=== PATIENT | female | born 1950 | race American Indian/Alaskan Native ===

== ENCOUNTER 2016-09-24 10:04 | Outpatient (CLI) | payer MEDICARE ==
--- NOTE | 2016-09-24 12:55 | Mammography Report ---
BONE DENSITY STUDY: DEFINITIONS: BMD = Bone Mineral Density T-score = BMD related to mean peak bone mass of young adult (mean expressed in Standard Deviation) Z-score = Age matched BMD expressed in SD World Health Organization (WHO) Diagnostic Criteria Normal T-score > -1 SD Osteopenia T-score between -1 and -2.4 SD Osteoporosis T-score -2.5 SD or below FINDINGS: The weighted average BMD of lumbar spine L1-L4 is 1.144 with a T-score of -0.1. The weighted average BMD of hip is 1.002 with a T-score of -0.2. IMPRESSION: The patient's T-score is diagnostic for normal bone density and low relative risk for fracture. NOTE: BMD is not the only risk factor for fracture; also consider factors such as the patient's age, risk of falling, previous osteoporotic fracture, family history of osteoporotic fractures, current smoker, and low body weight. Meehan's triangle is a region of interest in femur, predominantly of trabecular bone. It is not a true anatomic site, and [facility] does not recommend its use clinically.
--- NOTE | 2016-09-29 12:04 | Mammography Report ---
BILATERAL DIGITAL SCREENING MAMMOGRAM WITH CAD: Comparison study is dated August 09, 2015. FINDINGS: The breasts are heterogeneously dense. Biopsy clips are noted on the right. Scattered calcifications are stable and have benign features. In the left breast centrally, probably at the 12:00 position, there is an area of increased parenchymal asymmetry. Stable nodular asymmetries are noted bilaterally. No architectural distortion is seen. IMPRESSION: New left asymmetry. BI-RADS CATEGORY: 0 = Needs additional imaging evaluation ACR BI-RADS MAMMOGRAPHIC CODES: 0 = Needs additional imaging evaluation; 1 = Negative; 2 = Benign; 3 = Probably benign; 4 = Suspicious; 5 = Malignant; 6 = Known biopsy-proven malignancy COMMENT: 1. Dense breast tissue, i.e., adenosis, fibrocystic changes, etc., may obscure an underlying neoplasm. 2. Approximately 10% of cancers are not detected with mammography. 3. A negative mammography report should not delay biopsy if a clinically suspicious mass is present. RECOMMENDATION: Spot compression images and ultrasound, if needed. COMMENT: Patient follow-up letters are generated in [employer].
== END 2016-09-24 10:05 | disposition home or self-care (01) ==
LOC: SPVWC 10:04
PROVIDERS: ATTEND Obstetrics & Gynecology Gynecology
DX: Z12.31 Encounter for screening mammogram for malignant neoplasm of breast (principal); N95.1 Menopausal and female climacteric states
CPT/HCPCS: 77080; G0202; 77067

== ENCOUNTER 2016-12-22 11:20 | Outpatient (CLI) | payer MEDICARE ==
--- NOTE | 2016-12-22 12:40 | Ultrasound Report ---
ABDOMINAL ULTRASOUND: 12/22/16 11:20:00 CLINICAL: Bloating. FINDINGS: High-resolution ultrasound demonstrated a normal size liver with moderate diffuse increased echogenicity. No liver mass. Normal hepatic vasculature and inferior vena cava. Normal gallbladder and bile ducts. No bladder wall measured 2.0 mm thick. The common bile duct measured 5.0 mm mm diameter. The pancreatic head and proximal body are normal except for a prominent duct upper (2.8 mm). The pancreatic tail was obscured by bowel gas. l Normal abdominal aorta. A normal spleen measured 7.7cm. Moderate increase echogenicity of both kidneys. Normal non-dilated renal collecting systems and ureters. The right kidney measured 11.9 x 4.0 x 6.1cm. The left kidney measured 11.2 x 5.6 x 6.0cm. No renal mass or calculus. No ascites or mass. IMPRESSION: 1. Changes in the liver consistent with hepatic steatosis. 2. Bilateral medical renal disease. 3. No cholelithiasis. 4. Prominent pancreatic duct.
== END 2016-12-22 11:21 | disposition home or self-care (01) ==
LOC: SPVIMAG 11:20
PROVIDERS: ATTEND Internal Medicine Gastroenterology
DX: R14.0 Abdominal distension (gaseous) (principal); N28.9 Disorder of kidney and ureter, unspecified
CPT/HCPCS: 76700

== ENCOUNTER 2018-05-11 11:28 | Outpatient (CLI) | payer MEDICARE ==
--- NOTE | 2018-05-11 16:29 | Mammography Report ---
BILATERAL DIGITAL SCREENING MAMMOGRAM with CAD : 05/11/18 11:28:00 CLINICAL: Routine screening. COMPARISON:09/24/16 FINDINGS: The breasts are heterogeneously dense, which may obscure small masses.2 right inner biopsy clips. Multiple bilateral circumscribed nodules are unchanged compared to the prior exam. No architectural distortion or suspicious calcifications. IMPRESSION: No mammographic evidence of malignancy. BI-RADS CATEGORY: 2 -- Benign RECOMMENDATION: Routine mammographic screening in one year. COMMENT: Patient follow-up letters are generated by our [employer] application.
== END 2018-05-11 11:29 | disposition home or self-care (01) ==
LOC: SPVWC 11:28
PROVIDERS: ATTEND Obstetrics & Gynecology Gynecology
DX: Z12.31 Encounter for screening mammogram for malignant neoplasm of breast (principal)
CPT/HCPCS: 77067

== ENCOUNTER 2021-05-21 11:28 | Outpatient (CLI) | payer MEDICARE | END 2021-05-21 11:29 | disposition home or self-care (01) | LOC: SPVWC 11:28 | PROVIDERS: ATTEND Internal Medicine | DX: Z12.31 Encounter for screening mammogram for malignant neoplasm of breast (principal) | CPT/HCPCS: 77067 ==

== ENCOUNTER 2022-06-04 12:32 | Outpatient (CLI) | payer MEDICARE ==
--- NOTE | 2022-06-07 14:58 | Mammography Report ---
DIGITAL SCREENING MAMMOGRAM WITH CAD, 06/04/2022 CLINICAL INFORMATION / INDICATION: Routine screening mammography. TECHNIQUE: Digital bilateral 2D mammography was obtained in the craniocaudal and mediolateral oblique projections. This examination was interpreted with the benefit of Computer-Aided Detection analysis. COMPARISON: 07/18/2014 through 05/21/2021. FINDINGS: Breast Density: The breasts are heterogeneously dense, which may obscure small masses. No dominant mass, suspicious calcifications, or architectural distortion in either breast. Benign-appearing nodularity and calcifications bilaterally are again identified. There are bilateral breast scars. 2 right biopsy clips are present. No new abnormality is seen. IMPRESSION: No mammographic evidence of malignancy. Follow up recommendation: Routine yearly screening mammogram. BI-RADS Category 2: BENIGN. A "normal" or negative report should not discourage follow up or biopsy of a clinically significant f inding. A written summary of these findings will be mailed to the patient. The patient will be entered into a mammography reporting system which will generate a reminder letter for the patient's next appointmen t at the appropriate interval. The [employer] recommends yearly mammograms starting at age 40 and continuing as l ronnie as a woman is in good health. Breast MRI is recommended for women with an approximate 20-25% or greater lifetime risk of breast cancer, including women with a strong family history of breast or ova siva cancer or who have been treated for Hodgkin's disease. Signer Name: Aleks Ronquillo MD Signed: 06/07/2022 2:53 PM Workstation Name: [id number]
== END 2022-06-04 12:33 | disposition home or self-care (01) ==
LOC: SPVWC 12:32
PROVIDERS: ATTEND Internal Medicine
DX: Z12.31 Encounter for screening mammogram for malignant neoplasm of breast (principal)
CPT/HCPCS: 77067